=== PATIENT | female | born 1985 | race African-American/Black ===

== ENCOUNTER 2016-10-09 16:24 | Inpatient (IN) | payer SELFPAY ==
[~2016-10-09] VITALS: Ht 165.1 cm; Wt 59.0 kg
[2016-10-09] MEDS ORDERED: FLUORESCEIN SODIUM 1MG/STRIP BOTHEYE ONE (17:00)
[2016-10-09] MEDS ORDERED: TETANUS, DIPHTHERIA, PERTUSSIS VAC/PF 0.5ML (>7YR OLD) IM ONE (17:00)
[2016-10-09] MEDS ORDERED: TETRACAINE 0.5% OPHTH DROPS 4ML BOTHEYE ONE (17:00)
[2016-10-09 17:43] LABS: HCG SCREEN NEGATIVE
[2016-10-09] MEDS ORDERED: LIDOCAINE HCL 1%/EPI 1:200,000 30 ML VIAL MC ONE (18:45)
[2016-10-09] MEDS ORDERED: BACITRACIN ZINC OINT UDPKT TOP ONE (18:45)
[2016-10-09] MEDS ORDERED: MORPHINE SULFATE 4 MG/ML CPJ (NOT FOR IM USE) IV ONE (19:00)
[2016-10-09] MEDS ORDERED: ONDANSETRON HCL 4MG/2ML VIAL IV ONE (19:00)
[2016-10-09 22:21] VITALS: BP 116/83
[2016-10-09] MEDS ORDERED: DIPHENHYDRAMINE 50MG/ML VIAL IV PRN (23:45)
[2016-10-09] MEDS ORDERED: MAGNESIUM/ALUMINUM HYDROXIDE/SIMETHICONE 30ML UDC PO PRN (23:45)
[2016-10-09] MEDS ORDERED: ACETAMINOPHEN 325MG TABLET PO PRN (23:45)
[2016-10-09] MEDS ORDERED: ONDANSETRON HCL 4MG/2ML VIAL IV PRN (23:45)
[2016-10-10] VITALS: BP 114/78
[2016-10-10] MEDS: MORPHINE SULFATE 2 MG/ML CPJ (NOT FOR IM USE) IV PRN ×4 (01:37→17:41)
[2016-10-10] MEDS: DEXT 5%/0.45% NACL 1000ML 1,000 ML IV SCH ×2 (03:45→13:20)
[2016-10-10 04:00] VITALS: BP 104/66
[2016-10-10] MEDS: NEO/POLYMYX B SULF/DEXAMETH OPHTH OINT 3.5GM LEFTEYE SCH ×2 (07:46→12:00)
[2016-10-10 08:00] VITALS: BP 99/62
[2016-10-10 12:00] VITALS: BP 104/65
[2016-10-10] MEDS ORDERED: CIPROFLOXACIN 0.3% OPHTH SOLN 2.5ML ONE (12:31)
[2016-10-10] MEDS ORDERED: BALANCED SALT IRRIG SOLN 15ML ONE (12:31)
[2016-10-10] MEDS ORDERED: TETRACAINE 0.5% OPHTH DROPS 4ML ONE (12:31)
[2016-10-10] MEDS ORDERED: PREDNISOLONE ACETATE 1% OPHTH DROPS 1ML ONE (12:31)
[2016-10-10] MEDS ORDERED: LIDOCAINE HCL 2%/EPINEPHRINE 1:100,000 20 ML VIAL INFIL ONE (12:31)
[2016-10-10] MEDS ORDERED: NEO/POLYMYX B SULF/DEXAMETH OPHTH OINT 3.5GM ONE (12:31)
[2016-10-10] MEDS ORDERED: BUPIVACAINE HCL/PF 0.75% (7.5MG/ML) 10ML ONE (12:31)
[2016-10-10] MEDS ORDERED: PROPOFOL 10MG/ML 100ML 0 ML IV ONE (13:57)
[2016-10-10] MEDS ORDERED: PROPOFOL 200MG/20ML VIAL IV ONE (13:58)
[2016-10-10] MEDS ORDERED: FENTANYL CITRATE/PF 50MCG/ML 2ML VIAL ONE (13:59)
[2016-10-10] MEDS ORDERED: MIDAZOLAM HCL 2 MG/2 ML VIAL ONE (13:59)
[2016-10-10 16:00] VITALS: BP 118/81
[2016-10-10 18:24] VITALS: BP 118/81
== END 2016-10-10 18:39 | disposition home or self-care (01) | DRG 82 ==
LOC: ER 16:37 → EDBEDREQ 20:27 → 6EST 21:16 → ENRESERV 21:16 → 6EST 22:15
PROVIDERS: ADMIT Internal Medicine; ATTEND Internal Medicine
PROC: 0HQ1XZZ Repair Face Skin, External Approach (ICD-10-PCS; principal; 2016-10-09)
PROC: 08QPXZZ Repair Left Upper Eyelid, External Approach (ICD-10-PCS; 2016-10-10)
DX: S01.112A Laceration without foreign body of left eyelid and periocular area, initial encounter (principal); F17.210 Nicotine dependence, cigarettes, uncomplicated; S01.81XA Laceration without foreign body of other part of head, initial encounter; X99.1XXA Assault by knife, initial encounter; Y93.89 Activity, other specified; Y92.511 Restaurant or cafe as the place of occurrence of the external cause; Y99.8 Other external cause status
CPT/HCPCS: 12011; 70450; 70486; 84703; 90471; 90715; 93005; 96374; 96375; 99285; C1781; J1200; J2250; J2270; J2405; J2704; J3010; J3490